=== PATIENT | male | born 1955 | race Caucasian/White ===

== ENCOUNTER → 2020-02-02 11:25 | Outpatient (BNVA) | payer MEDICARE, BC, SELFPAY | PROVIDERS: Family Provider Internal Medicine; PCP Internal Medicine; Referring Provider Orthopaedic Surgery; Visit Provider Nurse Practitioner Family | DX: N40.1 Benign prostatic hyperplasia with lower urinary tract symptoms (principal); N13.8 Other obstructive and reflux uropathy; R35.1 Nocturia | CPT/HCPCS: 81001 ==

== ENCOUNTER → 2020-02-28 13:15 | Outpatient (BNVA) | payer MEDICARE, BC, SELFPAY | PROVIDERS: Family Provider Internal Medicine; PCP Internal Medicine; Visit Provider Internal Medicine | DX: E11.42 Type 2 diabetes mellitus with diabetic polyneuropathy (principal); K75.81 Nonalcoholic steatohepatitis (NASH); I10 Essential (primary) hypertension; E66.9 Obesity, unspecified; G47.33 Obstructive sleep apnea (adult) (pediatric); Z99.89 Dependence on other enabling machines and devices; I48.20 Chronic atrial fibrillation, unspecified | CPT/HCPCS: 80053; 80061; 81001; 83036; 85025 ==

== ENCOUNTER → 2020-08-01 10:07 | Outpatient (BNVA) | payer MEDICARE, BC, SELFPAY | PROVIDERS: Family Provider Internal Medicine; PCP Internal Medicine; Visit Provider Internal Medicine | DX: L40.50 Arthropathic psoriasis, unspecified (principal); L40.9 Psoriasis, unspecified; M17.10 Unilateral primary osteoarthritis, unspecified knee; Z79.899 Other long term (current) drug therapy | CPT/HCPCS: 99214 ==

== ENCOUNTER → 2020-08-16 11:46 | Outpatient (BNVA) | payer MEDICARE, BC, SELFPAY | PROVIDERS: PCP Internal Medicine; Visit Provider Orthopaedic Surgery | DX: Z11.59 Encounter for screening for other viral diseases (principal) | CPT/HCPCS: 87635 ==

== ENCOUNTER 2020-08-21 12:00 | Observation (INO) | payer MEDICARE, BC, SELFPAY ==
--- NOTE | 2020-08-16 08:24 | ECG_ITS ---
[facility] Test Date: 2020-08-16 Pat Name: Aly oWod Department: Room: Gender: Male District Traffic Chief: : 1955 Requested By: Jeannie Cisse Order Number: [id number] Reading MD: Measurements Intervals [place] Rate: 89 P: [place]: -1 QRS: -33 QRSD: 82 T: 44 QT: 330 QTc: 404 Interpretive Statements ATRIAL FIBRILLATION MARKED LEFT AXIS DEVIATION [QRS AXIS < -30] Compared to ECG 09/09/2019 12:43:49 No significant changes [email or web address]
[2020-08-16 10:14] VITALS: BMI 40.1
--- NOTE | 2020-08-16 11:12 | P.ANESASSM_ITS ---
Pre-Anesthetic Assessment Pre-Anesthetic Assessment: Height/Weight: Height 1.83 m Weight 134.263 kg Preop Diagnosis: Osteoarthritis right knee Proposed Procedure: Operation Date: 08/21/20 09:20 Proposed Procedures p Total Knee Arthroplasty 95162 M17.11(Right) - Naren Goel MD Familial anesthetic complications: None Social: Social History: No alcohol and No tobacco Exam: Pre-Anes Outpt Exam: alert, oriented x 3, clear to auscultation bilaterally and regular rate & rhythm Airway: Cervical ROM: WNL MP: 2 Dentition: Chipped, Loose and Other (missing (poor dentition)) Pulmonary: Pulmonary: Sleep apnea (cpap) CV/HEM: CV/HEM: Afib Comments: neagative stress test - seen by terry in april after his surgery was cancelled for the a fib Metabolic: Metabolic: DM, Hyperlipidemia and Morbid obesity Anesthetic Plan: ASA status: 3 Anesthesia: Eval. for regional block, General and Regional (specify below) Other: patient willing to try spinal Risk of > 500 ml blood loss (7ml/kg in children): No PFSH Anesthesia 2 PFSH: Medical History Afib Bilateral primary osteoarthritis of knee BPH w urinary obs/LUTS Essential hypertension Hyperlipidemia Obesity DEIRDRE on CPAP Psoriasis Pulmonary hypertension Type 2 diabetes mellitus with diabetic polyneuropathy Surgical History History of appendectomy History of tonsillectomy Family History Father , at age 71 Chronic kidney disease (CKD) kidney failure Mother , in her 40's MVA (motor vehicle accident) Other Diabetes Hypertension Kidney disease Social History (Updated 08/01/20 @ 10:34 by Liz Ivey LPN) Smoking and tobacco status: never smoked Alcohol intake: former Adopted: No Caregiver/support person: No Lives independently: Yes Marital status: Current occupational status: retired History of recent travel: No Current gender identity: Male Data Anesthesia Cardiac Studies: No Data to Display
[2020-08-16 11:30] LABS: Basophils # 0.1 10^3/uL (0.0-0.1); Basophils % 0.5 %; Eosinophils # 0.5 10^3/uL (0.0-0.8); Eosinophils % 3.6 %; Hematocrit 45.8 % (42.0-52.0); Hemoglobin 14.2 g/dL (11.7-16.6); Lymphocytes # 2.3 10^3/uL (0.8-4.8); Lymphocytes % 17.7 %; Mean Corpuscular Volume 90.2 fL (80-94); Mean Platelet Volume 9.4 fL (7.4-10.4); Monocytes % 7.5 %; Neutrophils # 8.87 10^3/uL (1.8-7.7); Neutrophils % 68.9 %; Nucleated Red Blood Cells % 0 %; Platelet Count 255 10^3/cmm (130-400); Red Blood Count 5.08 10^6/uL (4.1-5.3); Red Cell Distribution Width 13.7 % (12.1-15.1); White Blood Count 12.9 10^3/uL (4.0-10.0)
[2020-08-16 12:04] LABS: Anion Gap 16.3 (5-19); Blood Urea Nitrogen 19 mg/dL (8-23); Calcium 9.5 mg/dL (8.5-10.5); Carbon Dioxide 22 mmol/L (22-29); Chloride 101 mmol/L (98-107); Glomerular Filtration Rate 84.2 mL/min (90-130); Glucose 117 mg/dL (65-115); Osmolality Calculated 283 mOsm/kg (285-295); Potassium 4.3 mmol/L (3.5-5.1); Sodium 135 mmol/L (136-145)
[2020-08-16 12:05] LABS: C Reactive Protein 4.6 mg/L (0.0-4.9)
[2020-08-16 12:28] LABS: Erythrocyte Sedimentation Rate 21 mm/hr (0-10)
[2020-08-21] VITALS (20 sets, daily range): BP systolic 96–175; BP diastolic 55–114; PULSE 83–116; RESP 15–28; TEMP 36.1–37.1; O2SAT 92–100
[2020-08-21] MEDS: acetaminophen 500 mg Tablet 1000 MG PO ×2 (08:05→17:16)
[2020-08-21] MEDS: gabapentin 300 mg Capsule PO ×2 (08:06→13:32)
[2020-08-21] MEDS: CELEcoxib 200 mg Capsule PO (08:07)
[2020-08-21] MEDS: sodium chloride 0.9% 1,000 ML 30 ML IV (08:07)
[2020-08-21] MEDS: oxyCODONE 20 mg ER (12 HR) Tablet PO (08:16)
--- NOTE | 2020-08-21 08:25 | P.ANESUD_ITS ---
Pre-Anesthetic Update Pre-Anesthetic Assessment: Date of Surgery/Procedure: 08/21/20 Preop Anne Marie gnosis: Osteoarthritis right knee Proposed Procedure: Operation Date: 08/21/20 09:20 Proposed Procedures p Total Knee Arthroplasty 52774 M17.11(Right) - Naren Goel MD Any changes to Pre-Anesthetic Assessment?: No Last Intake: Intake Last Liquid Date 08/20/20 Last Liquid Time 19:00 Last Solid Date 08/20/20 Last Solid Time 17:00 Vitals: Temperature 97.0 F L 08/21/20 07:33 Temperature Source Temporal Artery S can 08/21/20 07:33 Pulse Rate 83 08/21/20 07:33 Pulse Rhythm 08/21/20 07:37 Pulse Strength 3+ Normal 08/21/20 07:37 Respiratory Rate 18 08/21/20 08:16 Respiratory Effort 08/21/20 08:16 Respiratory Depth Normal 08/21/20 08:16 Respiratory Patter n 08/21/20 08:16 Blood Pressure 175/114 08/21/20 07:33 Blood Pressure [place] n 134 08/21/20 07:33 Pulse Oximetry 100 08/21/20 08:16 Oxygen Delivery Me thod 08/21/20 07:37 Exam: Pre-Anes Outpt Exam: alert, oriented x 3, clear to auscultation bilaterally and regular rate & rhythm Cardiac Studies: No Data to Display
--- NOTE | 2020-08-21 08:43 | ANES.PROC ---
Anesthesia Procedures Procedure/Date: 08/21/20 Nerve Block ^: Nerve Block 1: Main Anesthesia: general anesthesia Time Out Performed: Yes Consent: requested by attending/covering physician, from patient, from other, risks and benefits reviewed and patient agrees to proceed Nerve block location: adductor canal (R) Anesthesia monitors applied: pulse oximetry, EKG, BP cuff and oxygen Nerve block position: supine Anesthetic Used: ropivicaine 0.5% and with decadron (4 mg) Amount of anesthesia used (mL): 30 Ultrasound used to: recognize landmarks and visualize and ID femerol nerve Nerve Stimulator Used?: No Interscalene/Femoral BLK: 4 stimuplex 21 g needle used for position and inplane approach, visualize local anesthetic spread and no vascular puncture identified Injection: neg aspiration of heme Patient Tolerated Procedure: well and no complications Complications: none
--- NOTE | 2020-08-21 08:45 | PC.NURSE ---
TIME OUT DONE BY ANESTHESIA FOR RIGHT KNEE NERVE BLOCK. DURING PROCEDURE PATIENTS SATS REMAINED WNL, SENIOR ASP NET DEVELOPER ON
--- NOTE | 2020-08-21 09:19 | P.HP_ITS ---
Same Day Surgery H&P Indication for Procedure/HPI DATE OF PROCEDURE: August 21, 2020 CHIEF COMPLAINT/INDICATIONFOR SURGICAL PROCEDURE: Osteoarthritis of the right knee here for elective right total knee arthroplasty PREOP DIAGNOSIS: Osteoarthritis right knee PLANNED PROCEDRUE: Operation Date: 08/21/20 09:20 Proposed Procedures p Total Knee Arthroplasty 68841 M17.11(Right) - Naren Goel MD Medications/Allergies* Home Medications Medication Instructions Recorded Confirmed Type metformin 1,000 mg tablet 1,000 mg PO BID 11/23/19 08/21/20 History metoprolol tartrate 100 mg tablet 100 mg PO BID 11/23/19 08/21/20 History tizanidine 4 mg tablet 4 mg PO TID PRN 11/23/19 08/21/20 History aspirin 81 mg tablet,delayed 81 mg PO BID 12/20/19 08/21/20 History release cholecalciferol (vitamin D3) 600 mg PO DAILY 12/20/19 08/21/20 History omega-3 fatty acids 1,000 mg 1,000 mg PO DAILY 12/20/19 08/21/20 History capsule vitamin A-vitamin C-vit E-min 1 tab PO DAILY 12/20/19 08/21/20 History polyethylene glycol 3350 17 gram 17 gm PO DAILY 02/01/20 08/21/20 History oral powder packet Allergies/Adverse Reactions Allergy/AdvReac Type Severity Reaction Status Date / Time niacin Allergy Unknown Verified 08/21/20 07:28 Sulfa (Sulfonamide Allergy Unknown Verified 08/21/20 07:28 Antibiotics) venlafaxine Allergy Unknown Verified 08/21/20 07:28 Current Medications: Generic Name Dose Route Start Last Admin Trade Name Freq PRN Reason Stop Dose Admin Sodium Chloride 1,000 mls @ 30 mls/hr 08/21/20 07:30 08/21/20 08:07 Sodium Chloride 0.9% IV 08/22/20 07:29 30 mls/hr .Q24H TEVIN Administration Oxycodone HCl 20 mg 08/21/20 07:30 08/21/20 08:16 Oxycontin PO 20 mg ONCE TEVIN Administration Pertinent History/Comorbid Conditions* Medical History (Updated 07/17/20 @ 11:50 by Naren Goel MD) Afib Bilateral primary osteoarthritis of knee BPH w urinary obs/LUTS Essential hypertension Hyperlipidemia Obesity DEIRDRE on CPAP Psoriasis Pulmonary hypertension Type 2 diabetes mellitus with diabetic polyneuropathy Surgical History (Updated 11/29/19 @ 13:35 by Jatin Connor MD) History of appendectomy History of tonsillectomy Family History (Updated 02/28/20 @ 09:18 by Malgorzata Chaidez LPN) Father, at age 71 Mother, in her 40's Diabetes MVA (motor vehicle accident) Mother Kidney disease Chronic kidney disease (CKD) Father kidney failure Hypertension Social History Smoking and tobacco status: never smoked Alcohol intake: former Adopted: No Caregiver/support person: No Lives independently: Yes Marital status: Current occupational status: retired History of recent travel: No Current gender identity: Male Pertinent Exam Findings alert, oriented x 3, clear to auscultation bilaterally, operative site marked and procedure specific exam findings (See previous note range of motion unchanged) Recommendations Surgery/Procedure today Coding Level of Care Code Acute Ground Host/Hostess for Maty Borjas
--- NOTE | 2020-08-21 10:25 | SUR.OPER ---
FAMILY UPDATED OF SURGICAL STATUS.
[2020-08-21 10:31] LABS: Glucose Point of Care 120 mg/dL (70-110)
[2020-08-21] MEDS: tranexamic acid 1,000 mg/10mL SDV 1000 MG IRRIGATION (10:41)
[2020-08-21] MEDS: EPINEPHrine 1 mg/mL INJ XX (10:44)
[2020-08-21] MEDS: ketorolac 30 mg/mL INJ IM (10:44)
--- NOTE | 2020-08-21 11:24 | PM.OP ---
Operative Report Date of procedure: August 21, 2020 Pre-op Diagnosis: Osteoarthritis right knee Post-op diagnosis: same Post-op Findings: Same same Procedure Done: Right total knee arthroplasty Implants: er total knee arthroplasty components were used includin) Size 6 triathalon cruciate retaining femoral component 2) Size 6 Tritanium tibial component 3) 40 mm /11 mm thickness Tritanium asymetric patella 4) Size 6/16 mm thickness CR tibial bearing insert Pathology: none sent Surgeon: Naren Goel Anesthesia: Nerve Block (Spinal, abductor canal block) Estimated blood loss (mL): 100 Findings: Patient had severe eburnated bone over the medial femoral condyle medial tibial plateau patella and trochlea Condition: stable Disposition: PACU Procedure: The patient was taken to the operating room. Patient was given 1 g of tranexamic acid . The above anesthesia provided by the anesthesia service. A timeout was performed. The patient was prepped and draped in the usual fashion with the lower extremity exposed. A anterior incision was made, midline, from a point proximal to the patella to the distal tibial tubercle. The knee was entered through a medial parapatellar approach. The patella could be displaced laterally and the knee flexed. The patellar fat pad was resected to provide better visibility. Retractors were placed medially and laterally adjacent to the tibial plateau. The femoral canal was drilled in line with the longitudinal axis of the femur. Intramedullary femoral guide for used to make a distal femoral cut in 5 degrees of valgus, resecting 8 mm from the more prominent condyle. Next the extra medullary tibial guide was placed in alignment with the longitudinal axis of the tibia. The cutting guides were set to remove just over 9 mm from the high tibial plateau. The proximal tibia was then cut. The femoral measuring guide was then placed over the distal femur. Rotation was verified checking the relationship of the guide to the condyle and the trochlear groove. The femur was measured and cut for the desired femoral component. The desired tibial baseplate was then chosen. A trial reduction with the femur tibial baseplate and polyethylene was done, assuring that the knee was stable throughout full motion. Ligament balancing release of the deep medial collateral ligament.The tibia was prepared for the tibial baseplate. Patellar thickness was then measured. The patella was cut removing articular cartilage and prepared for appropriate size patellar button. All surfaces were cleaned with pulsatile lavage. The femur tibia and patella were then press-fit into place. The posterior capsule and collateral ligaments were then injected with a solution of 100 mL of 0.2% ropivacaine, 1 mL of a 1:1000 epinephrine solution, and 30 mg of Toradol. Final polyethylene component was then snapped into place into the tibia. 2 grams of tranexamic acid were applied to the wound. The tourniquet was deflated. The tranxanemic acid was left contact with the knee for 5 minutes before the knee was irrigated with saline. The extensor retinaculum was closed with 1 Ethibond. The subcutaneous tissues were closed with 2-0 Vicryl and the skin was closed with skin jean. A compressive dressing was applied. The patient was taken to recovery room in stable condition. Wiliam
--- NOTE | 2020-08-21 11:38 | XRR_ITS ---
PROCEDURE INFORMATION: Exam: XR Right Knee Exam date and time: 08/21/2020 11:39 AM Age: 65 years old Clinical indication: Device placement; Joint replacement hardware; Prior surgery; Surgery date: Post-operative (0-2 days); Additional info: Right total knee arthroplasty TECHNIQUE: Imaging protocol: XR Right knee. Views: 1 or 2 views. COMPARISON: [place] [id number] 07/29/2019 10:40 AM FINDINGS: Bones/joints: The patient has undergone recent insertion of a total knee prosthesis. The projects in satisfactory position. No fractures are seen. Soft tissues: Normal. Other findings: Gas is present in the soft tissues from the recent surgery. XR/XR knee RT 1-2V [id number] IMPRESSION: Satisfactory postoperative appearance.
--- NOTE | 2020-08-21 11:50 | PM.PACU ---
PACU note Post-Anesthesia Exam: awake and vital signs stable Disposition: admitted
[2020-08-21 13:27] LABS: Glucose Point of Care 170 mg/dL (70-110)
[2020-08-21] MEDS: sodium chloride 0.9% 1,000 ML 100 ML IV (13:32)
[2020-08-21] MEDS: chlorhexidine gluconate 0.12% Btl 473 mL 30 ML MUCOUS MEM ×3 (13:33→22:44)
[2020-08-21] MEDS: mupirocin oint 22 gm 1 APPLIC NASAL (17:15)
[2020-08-21] MEDS: metoprolol tartrate 50 mg Tablet 100 MG PO (17:16)
[2020-08-21] MEDS: aspirin 81 mg EC Tablet PO (17:17)
[2020-08-21] MEDS: sennosides-docusate Tablet 2 TAB PO (17:17)
[2020-08-21 17:55] LABS: Glucose Point of Care 191 mg/dL (70-110)
[2020-08-21 21:40] LABS: Glucose Point of Care 205 mg/dL (70-110)
[2020-08-21] MEDS: atorvastatin 40 mg Tablet 20 MG PO (22:42)
[2020-08-21] MEDS: oxyCODONE 5 mg IR Tab/Cap PO (22:52)
[2020-08-22] VITALS: BP 126/75; PULSE 92; RESP 18; TEMP 36.6; O2SAT 97
[2020-08-22] MEDS: sodium chloride 0.9% 1,000 ML 100 ML IV (00:20)
[2020-08-22] MEDS: acetaminophen 500 mg Tablet 1000 MG PO ×2 (00:28→09:32)
[2020-08-22 04:00] VITALS: BP 126/76; PULSE 103; RESP 18; TEMP 36.5; O2SAT 98
[2020-08-22 06:19] LABS: Basophils % 0.2 %; Eosinophils # 0.1 10^3/uL (0.0-0.8); Eosinophils % 0.3 %; Hematocrit 36.1 % (42.0-52.0); Hemoglobin 11.4 g/dL (11.7-16.6); Lymphocytes # 1.6 10^3/uL (0.8-4.8); Lymphocytes % 9.5 %; Mean Corpuscular HGB Conc 31.6 g/dL (30.0-36.0); Mean Corpuscular Hemoglobin 28.1 pg (28.0-34.0); Mean Corpuscular Volume 88.9 fL (80-94); Mean Platelet Volume 9.6 fL (7.4-10.4); Monocytes # 1.8 10^3/uL (0.2-0.9); Monocytes % 10.2 %; Neutrophils # 13.72 10^3/uL (1.8-7.7); Neutrophils % 79.3 %; Nucleated Red Blood Cells % 0 %; Platelet Count 213 10^3/cmm (130-400); Red Blood Count 4.06 10^6/uL (4.1-5.3); Red Cell Distribution Width 13.3 % (12.1-15.1); White Blood Count 17.3 10^3/uL (4.0-10.0)
[2020-08-22 06:31] LABS: Anion Gap 15.3 (5-19); Blood Urea Nitrogen 23 mg/dL (8-23); Calcium 8.6 mg/dL (8.5-10.5); Carbon Dioxide 21 mmol/L (22-29); Chloride 105 mmol/L (98-107); Glomerular Filtration Rate 84.2 mL/min (90-130); Glucose 118 mg/dL (65-115); Osmolality Calculated 289 mOsm/kg (285-295); Potassium 4.3 mmol/L (3.5-5.1); Sodium 137 mmol/L (136-145)
[2020-08-22 06:33] LABS: Glucose Point of Care 140 mg/dL (70-110)
[2020-08-22 06:35] VITALS: RESP 16; O2SAT 98
[2020-08-22] MEDS: oxyCODONE 5 mg IR Tab/Cap PO (06:35)
[2020-08-22 08:00] VITALS: BP 121/77; PULSE 100; RESP 17; TEMP 37; O2SAT 96
--- NOTE | 2020-08-22 08:00 | ANE.PACU2 ---
Inpatient post-anesthesia follow up: Airway intact: Yes Vital signs: Temperature 98.6 F Pulse Rate 17 Respiratory Rate 100 Blood Pressure 121/77 Pulse Oximetry 96 Oxygen Delivery Me thod Room Air Oxygen Flow Rate Fraction of Inspir ed Oxygen Hydration adequate: Yes Nausea and vomiting: No Pain level: 2 Mental status: Baseline Additional Comments: no signs of infection at neuraxial site, no residual lower extremity weakness/numbness, no headaches, urinating without yeh, up andwalking
[2020-08-22] MEDS: hydroCHLOROthiazide 25 mg Tablet PO (09:32)
[2020-08-22] MEDS: omega-3 fatty acids 1,000 mg Capsule 1000 MG PO (09:32)
[2020-08-22] MEDS: spironolactone 25 mg Tablet PO (09:32)
[2020-08-22] MEDS: sennosides-docusate Tablet 2 TAB PO (09:32)
[2020-08-22] MEDS: aspirin 81 mg EC Tablet PO (09:32)
[2020-08-22] MEDS: metoprolol tartrate 50 mg Tablet 100 MG PO (09:32)
[2020-08-22 09:33] VITALS: BP 121/77
[2020-08-22] MEDS: mupirocin oint 22 gm 1 APPLIC NASAL (09:33)
[2020-08-22] MEDS: polyethylene glycol 3350 Pkt 17 gm PO (09:33)
[2020-08-22] MEDS: losartan 50 mg Tablet 100 MG PO (09:33)
[2020-08-22] MEDS: chlorhexidine gluconate 0.12% Btl 473 mL 30 ML MUCOUS MEM (09:34)
--- NOTE | 2020-08-22 09:54 | PC.OT ---
OT screening performed and pt demonstrated ability to perform functional transfers and ADLs with B UE strength/ROM withing functional limits. ENGRAVER AUTOMATIC enters room to tell pt that his ride for discharge is waiting downstairs. No skilled OT required. Co-sign: MELE Aguilera/L
--- NOTE | 2020-08-22 09:55 | PC.CHAP ---
Pastoral Care Encounter/Spiritual Assessment Type of Contact [] Declined assistant operations manager visit [] Patient/Family/Request visit [] Outpatient visit [] Follow-up visit [] Physician referral [] Code/Alert [] Routine visit [] Staff referral [] Actively dying [] Patient sleeping [] Family support [] [] Out of room [] Palliative care [] [] Receiving care in room [] Pre-surgical visit [] Trauma [] Long length of stay [] ICU visit [] Other: Relational/Emotional Strength [] Patient feels connected with others/family/visitors/staff [] Distress [] Loneliness/isolation [] Abandonment Spirituality of Patient [] Person of Monique [] Attends Hoahaoism of their Monique [] Believes in Prayer [] Reads Bible or Islam materials [] There are Spiritual issues to be addressed Offensive Coordinator Interventions [x] Prayer [] Active listening [] Non-anxious presence [] Spiritual/emotional support [] Crisis/trauma care [] Spiritual counseling [] Bereavement support [] Provided bereavement packet [] Provided Bible/devotional materials [] Provided toy/stuffed animal, coloring book to patient or family member [] Provided Communion [] Anointing/[place] [] Salvation [] Completed spiritual assessment [] Other: Impact on Illness or Injury [] Angry [] Fearful [] Anxious [] Often cries [] Exhaustion [] Unable to work [] Unable to attend bahai [] Unable to walk/stand [] Unable to read [] Unable to drive [] Unable to eat/drink [] Unable to sleep [] Unable to be with family [] Patient intubated [] Other: Summary patient doing great Time spent with patient `0 min
--- NOTE | 2020-08-22 11:11 | PC.NURSE ---
patient given discharge instructions and verbalized understanding of instructions. patient taken to private vehicle via wheelchair by staff. patient has paper script for narcotic and other discharge medications sent to pharmacy. patient stated he will picker operator walker from HOME himself.
[2020-08-22 11:14] VITALS: BP 121/77; PULSE 17; RESP 100; TEMP 37; O2SAT 96
--- NOTE | 2020-08-22 12:49 | PM.DCS ---
Discharge Providers Date of Admission: 08/21/20 12:00 Date of Discharge: August 22, 2020 Attending Provider at Admission: Naren Goel MD Attending Provider at Discharge: Naren Goel MD Primary Care Provider: Jatin Connor MD Diagnoses at Discharge Discharge Diagnosis (1) Status post left knee replacement: Status: Acute (2) Osteoarthritis of left knee: Status: Resolved (3) Obesity: Status: Chronic Qualifiers: Obesity type: unspecified obesity type Serious obesity comorbidity presence: unspecified whether serious comorbidity present Body mass index: BMI 40.0-44.9 (4) Type 2 diabetes mellitus with diabetic polyneuropathy: Status: Chronic (5) Afib: Status: Acute Qualifiers: Atrial fibrillation type: unspecified chronic Qualified Code(s): I48.20 - Chronic atrial fibrillation, unspecified (6) Psoriasis: Status: Acute (7) DEIRDRE on CPAP: Status: Chronic (8) Osteoarthritis of right knee: Status: Acute Reason for Visit Reason for Visit: primary osteoarthritis of right knee Hospital Course Hospital Course: Circumflex vein was admitted for an elective left total knee arthroplasty. Postoperatively he did quite well. His initial blood sugars were managed with sliding scale insulin. By the first postoperative day he was up ambulating with a walker. His blood sugars were under reasonable control. He was tolerating oral intake. He was managed with aspirin and foot pumps for DVT prophylaxis. He was thought stable for discharge Physical Exam Narrative: EXAM NARRATIVE: On the day of discharge his knee incision was clean. They had no drainage. There is minimal swelling in the thigh and knee and the calf. No distal neurovascular deficits were noted Urinary Catheter Management^: Real: Cath Placed During This Visit: yes, but has since been removed by the nurse Reason for Continuing Indwelling Catheter: Perioperative Use in Selected Surgeries Urinary Catheter Date of Insertion: 08/21/20 Urinary Catheter Time of Insertion: 09:50 Date Urinary Catheter Removed: 08/22/20 Time Urinary Catheter Discontinued: 06:40 Discharge Data Data Completed and Pending: Completed Studies During Hospitalization Category Date Time Status XR knee RT 1-2V 7 3560 Routine Exams 08/21/20 11:38 Completed Labs from last 24 hours 08/22/20 08/22/20 08/22/20 06:28 05:00 05:00 WBC 17.3 H RBC 4.06 L Hgb 11.4 L Hct 36.1 L MCV 88.9 MCH 28.1 MCHC 31.6 RDW 13.3 Plt Count 213 MPV 9.6 Neut % (Auto) 79.3 Lymph % (Auto) 9.5 [place] % (Auto) 10.2 Eos % (Auto) 0.3 Baso % (Auto) 0.2 Neut # (Auto) 13.72 H Lymph # (Auto) 1.6 [place] # (Auto) 1.8 H Eos # (Auto) 0.1 Baso # (Auto) 0.0 Nucleated RBC % (a uto) 0 Nucleated RBCs # 0.0 Sodium 137 Potassium 4.3 Chloride 105 Carbon Dioxide 21 L Anion Gap 15.3 BUN 23 Creatinine 0.9 GFR Calculation 84.2 L Glucose 118 H POC Glucose 140 Calculated Osmolal ity 289 Calcium 8.6 08/21/20 08/21/20 08/21/20 21:36 17:27 13:23 WBC RBC Hgb Hct MCV MCH MCHC RDW Plt Count MPV Neut % (Auto) Lymph % (Auto) [place] % (Auto) Eos % (Auto) Baso % (Auto) Neut # (Auto) Lymph # (Auto) [place] # (Auto) Eos # (Auto) Baso # (Auto) Nucleated RBC % (a uto) Nucleated RBCs # Sodium Potassium Chloride Carbon Dioxide Anion Gap BUN Creatinine GFR Calculation Glucose POC Glucose 205 191 170 Calculated Osmolal ity Calcium Vitals: Last Vital Signs Temp 98.6 F 08/22/20 11:14 Pulse 17 L 08/22/20 11:14 Resp 100 H 08/22/20 11:14 BP 121/77 08/22/20 11:14 Pulse Ox 96 08/22/20 11:14 Discharge Plan Discharge Patient Disposition: Home Health Service Condition: Stable Prescriptions: New oxycodone 5 mg Tablet 5 mg PO Q4H PRN (Reason: Moderate Pain) 7 Days RF: 0 Celebrex 200 mg capsule 200 mg PO Q12H 14 Days Qty: 28 RF: 0 Neurontin 300 mg capsule 300 mg PO Q12H 14 Days Qty: 28 RF: 0 Continued aspirin [Aspir-81] 81 mg tablet,delayed release (DR/EC) 81 mg PO BID RF: 0 cholecalciferol (vitamin D3) 600 mg PO DAILY RF: 0 polyethylene glycol 3350 [Miralax] 17 gram powder in packet 17 gm PO DAILY PRN (Reason: Constipation) RF: 0 metformin 1,000 mg tablet 1,000 mg PO BID RF: 0 metoprolol tartrate 100 mg tablet 100 mg PO BID RF: 0 tizanidine 4 mg tablet 4 mg PO TID PRN (Reason: Muscle Pain) RF: 0 Cosentyx Pen 150 mg/mL pen injector 150 mg SUBCUT ONCE Qty: 1 RF: 12 losartan 100 mg tablet 100 mg PO QDAY Qty: 90 RF: 3 spironolacton-hydrochlorothiaz 25-25 mg tablet 1 tab PO DAILY Qty: 90 RF: 3 atorvastatin 80 mg tablet 80 mg PO DAILY Qty: 90 RF: 3 Humulin N NPH Insulin KwikPen 100 unit/mL (3 mL) insulin pen 60 unit SUBCUT BID Qty: 15 RF: 6 alprazolam [Xanax] 0.5 mg tablet 0.5 mg PO .Q6HRS PRN (Reason: anxiety) Qty: 30 RF: 0 Bydureon BCise 2 mg/0.85 mL auto-injector 2 mg SUBCUT Q7D Qty: 13.6 RF: 3 tramadol 50 mg tablet 50 - 100 mg PO TID PRN (Reason: pain) Qty: 180 RF: 3 OneTouch Ultra Blue Test Strip Strip See Rx Instructions .ROUTE .COMPLEX Qty: 100 RF: 3 No Action Multiple Vitamins Tablet 1 tab PO DAILY RF: 0 senna 8.6 mg Tablet 8.6 mg PO PRN RF: 0 Flonase Allergy Relief 50 mcg/actuation [place],Suspension 1 - 2 spray INTRANASAL PRN RF: 0 [place] 3-6-9 1 cap PO DAILY RF: 0 turmeric 1 cap PO DAILY RF: 0 Discharge Orders: Discharge Order (Routine); Ordered 08/22/20 Ordered By: Naren Goel Other Ambulatory Orders: DME: Walker (Order) Location: None Selected Ordered By: Naren Goel Referrals: [facility] [Outside] [facility] ([facility]) [Outside] Naren Goel MD [Physician] - 09/05/20 1:45 pm Discharge Diet: Advance as tolerated Discharge Activity: Limit activity as instructed Patient Instructions: Gabapentin (By mouth), Oxycodone, Rapid Release (By mouth), Celecoxib (By mouth), Total Knee Replacement (DC) Activity Restrictions/Additional Instructions: May shower once incisions completely free of drainage. Discontinue knee dressing in 24-48 hours. Replace with dressing provided by nursing at discharge Take Celebrex twice a day for the next 15 days for pain , discontinue other anti-inflammatories Take Neurontin twice a day for 14 days. take oxycodone for breakthrough pain. Exercises per physical therapy. May weight-bear as tolerated on total knee arthroplasty Discharge Date/Time: 08/22/20 11:15 Discharge Attestations Time Spent in Discharge Care*: other Quality Metrics Clinical Quality Measures During this hospital stay, did patient experience: None Coding Level of Care Code Acute Superintendent Container Terminal for Maty Borjas Diagnoses Status post left knee replacement Z96.652 Osteoarthritis of left knee M17.12 Obesity E66.9 Obesity type: unspecified obesity type Serious obesity comorbidity presence: unspecified whether serious comorbidity present Body mass index: BMI 40.0-44.9 Type 2 diabetes mellitus with diabetic polyneuropathy E11.42 Afib I48.20 Atrial fibrillation type: unspecified chronic Psoriasis L40.9 DEIRDRE on CPAP G47.33; Z99.89 Osteoarthritis of right knee M17.11
--- NOTE | 2020-08-22 14:44 | PC.RESP ---
Pulmonary Rehab information sent to patient.
== END 2020-08-22 11:15 | disposition home health service (06) ==
LOC: MEDSURG 12:00
PROVIDERS: Anesthesiology; Internal Medicine; Admitting Provider Orthopaedic Surgery; PCP Internal Medicine; Visit Provider Orthopaedic Surgery
PROC: (CPT 27447; principal; 2020-08-21 09:20)
DX: M17.11 Unilateral primary osteoarthritis, right knee (principal); E66.01 Morbid (severe) obesity due to excess calories; Z68.41 Body mass index [BMI] 40.0-44.9, adult; E11.42 Type 2 diabetes mellitus with diabetic polyneuropathy; I48.20 Chronic atrial fibrillation, unspecified; L40.9 Psoriasis, unspecified; G47.33 Obstructive sleep apnea (adult) (pediatric); Z99.89 Dependence on other enabling machines and devices; E78.5 Hyperlipidemia, unspecified; Z23 Encounter for immunization
CPT/HCPCS: 27447; 12345; 36416; 51702; 64447; 73560; 76942; 80048; 82962; 85025; 85651; 86140; 90471; 90686; 93005; 96361; 96365; 96372; 97110; 97116; 97161; C1776; G0378; J0171; J0690; J1100; J1580; J1815; J1885; J2250; J2704; J2795; J7030

== ENCOUNTER → 2020-10-04 13:17 | Outpatient (BNVA) | payer MEDICARE, BC, SELFPAY | PROVIDERS: PCP Internal Medicine; Visit Provider Orthopaedic Surgery | DX: Z96.652 Presence of left artificial knee joint (principal) | CPT/HCPCS: 73560; 73565 ==

== ENCOUNTER 2020-10-06 06:00 | Outpatient (RCR) | payer BC, MEDICARE, SELFPAY | END 2020-10-19 23:59 | disposition home or self-care (01) | LOC: GPT 06:00 | PROVIDERS: PCP Internal Medicine; Referring Provider Orthopaedic Surgery; Visit Provider Orthopaedic Surgery | DX: Z47.1 Aftercare following joint replacement surgery (principal); Z96.651 Presence of right artificial knee joint | CPT/HCPCS: 97110; 97161; 97530 ==

== ENCOUNTER 2020-10-20 06:00 | Outpatient (RCR) | payer MEDICARE, BC, SELFPAY | END 2020-11-19 23:59 | disposition home or self-care (01) | LOC: GPT 06:00 | PROVIDERS: PCP Internal Medicine; Referring Provider Orthopaedic Surgery; Visit Provider Orthopaedic Surgery | DX: Z47.1 Aftercare following joint replacement surgery (principal); Z96.651 Presence of right artificial knee joint | CPT/HCPCS: 97110; 97116; 97530 ==

== ENCOUNTER → 2021-02-27 13:46 | Outpatient (BNVA) | payer MEDICARE, BC, SELFPAY | PROVIDERS: PCP Internal Medicine; Visit Provider Urology | DX: N40.1 Benign prostatic hyperplasia with lower urinary tract symptoms (principal); N13.8 Other obstructive and reflux uropathy | CPT/HCPCS: 81003 ==

== ENCOUNTER → 2021-03-23 15:19 | Outpatient (BNVA) | payer MEDICARE, BC, SELFPAY | PROVIDERS: PCP Internal Medicine; Visit Provider Podiatrist Foot & Ankle Surgery | DX: M79.673 Pain in unspecified foot (principal); E11.621 Type 2 diabetes mellitus with foot ulcer; L97.512 Non-pressure chronic ulcer of other part of right foot with fat layer exposed; L97.522 Non-pressure chronic ulcer of other part of left foot with fat layer exposed; E11.42 Type 2 diabetes mellitus with diabetic polyneuropathy; M20.21 Hallux rigidus, right foot; M20.22 Hallux rigidus, left foot; Z46.89 Encounter for fitting and adjustment of other specified devices | CPT/HCPCS: 73630; 87070; 87075; 87205; 97760; L4361 ==

== ENCOUNTER 2021-03-23 16:03 | Outpatient (CLI) | payer MEDICARE, BC, SELFPAY | END 2021-03-23 16:04 | disposition home or self-care (01) | LOC: SPT 16:05 | PROVIDERS: PCP Internal Medicine; Visit Provider Podiatrist Foot & Ankle Surgery | DX: Z46.89 Encounter for fitting and adjustment of other specified devices (principal); L97.512 Non-pressure chronic ulcer of other part of right foot with fat layer exposed | CPT/HCPCS: 87070; 87075; 87205; 97760; L4361 ==

== ENCOUNTER 2021-03-30 14:08 | Outpatient (CLI) | payer MEDICARE, BC, SELFPAY | END 2021-03-30 14:09 | disposition home or self-care (01) | LOC: WOUND 14:09 | PROVIDERS: PCP Internal Medicine; Visit Provider Nurse Practitioner Family | DX: E11.621 Type 2 diabetes mellitus with foot ulcer (principal); L97.512 Non-pressure chronic ulcer of other part of right foot with fat layer exposed | CPT/HCPCS: 11042; G0463 ==

== ENCOUNTER 2021-04-06 14:36 | Outpatient (CLI) | payer MEDICARE, BC, SELFPAY | END 2021-04-06 14:37 | disposition home or self-care (01) | LOC: WOUND 14:39 | PROVIDERS: PCP Internal Medicine; Visit Provider Surgery | DX: E11.621 Type 2 diabetes mellitus with foot ulcer (principal); L97.512 Non-pressure chronic ulcer of other part of right foot with fat layer exposed | CPT/HCPCS: 11042 ==

== ENCOUNTER 2021-04-13 13:13 | Outpatient (CLI) | payer MEDICARE, BC, SELFPAY | END 2021-04-13 13:14 | disposition home or self-care (01) | LOC: WOUND 13:15 | PROVIDERS: PCP Internal Medicine; Visit Provider Surgery | DX: E11.621 Type 2 diabetes mellitus with foot ulcer (principal); L97.512 Non-pressure chronic ulcer of other part of right foot with fat layer exposed | CPT/HCPCS: 11042 ==